=== PATIENT | female | born 1975 | race African-American/Black ===

== ENCOUNTER → 2016-11-05 11:55 | Emergency (ER) | payer BC ==
[~2016-11-05 11:55] MED LIST: ABREVA TOP; ASAB PO; BEN25 PO; COREG12 PO; COREG25 PO; COUMADIN10 MG PO; DEPO-ESTRADIO1 MG/ML IM; FERROUS SULF325 M1 PO; HABIT7 TOP; HALF81 PO; IBU800 PO; KDUR10 PO; KLOR-CON 1010 MEQ PO; KLOR-CON M2020 MEQ PO; L20 PO; L40 PO; LIPITOR40 PO; LISINOPRIL PO; LISINOPRIL40 MG PO; NAP500 PO; NORCO1 TAB PO; PCET PO; POLYSPORIN EYE3.5 GM OPH; PRIN10 PO; SEASONIQUE OR; SPIRO25 PO; TENORETIC1 TA1 PO; TRANDAT100 PO; TYLENOL PM PO; ULTRAM50 PO; ZESTRIL40 MG PO; ZOVIRAX400 MG PO
== END | disposition home or self-care (01) ==
LOC: ER 11:55
DX: J02.9 Acute pharyngitis, unspecified (principal); M32.9 Systemic lupus erythematosus, unspecified; Z95.810 Presence of automatic (implantable) cardiac defibrillator; Z79.82 Long term (current) use of aspirin; Z79.899 Other long term (current) drug therapy
CPT/HCPCS: 96372; 99282; J0561